=== PATIENT | female | born 1985 | race Caucasian/White ===

== ENCOUNTER 2025-01-12 13:54 | Emergency (ER) | payer OTHER, SELFPAY ==
--- NOTE | ~2025-01-12 | CT_ITS ---
CTA chest PE protocol Ordering provider: Miguel Gil MD History: 39 years Female with . tachycardia . Comparison: None. Technique: CT angiogram chest was performed following timed intravenous injection of contrast. Thin s lice axial images and reformatted coronal images were obtained. Three dimensional reformatted images of the chest were also obtained using a [employer] workstation. . Automated exposure control and iterati ve reconstruction technique were employed. The dose-length product was 385.93 mGy-cm. Findings: PULMONARY ARTERIES: No pulmonary embolus. VISUALIZED THORACIC INLET: Normal. MEDIASTINUM: Aorta/coronary arteries: The thoracic aorta is normal. Heart/other: The heart is not enlarged. Lymph nodes: No mediastinal or hilar adenopathy. Right hilar lymph node is seen measuring 1.4 cm. LUNGS: No pulmonary nodules or masses. No infiltrates or effusions. No pneumothorax. Dependent atelectatic c hanges. VISUALIZED UPPER ABDOMEN: Possible stone in the right kidney lower pole and left kidney mid pole vers us early excretion of contrast. Otherwise, the visualized upper abdomen is normal. MUSCULOSKELETAL: Soft tissues: The superficial soft tissues are normal. Bones: Normal spine. IMPRESSION: 1. No pulmonary embolism. 2. No acute cardiopulmonary pathology. 3. Possible right kidney lower pole and the left kidney midpole stones. Reviewed, dictated and finalized at location A.
--- NOTE | ~2025-01-12 | XR_ITS ---
XR chest 2V Ordering provider: Shweta Mosher MD History: 39 years Female with . Chest pain 2DAY RT UPPER SIDE, HIGH BP, FINGERS TINGLING . Comparison: None. FINDINGS: MEDIASTINUM: The cardiac silhouette is not enlarged. LUNGS: No infiltrates, effusions or pneumothorax. OTHER: No free air under the diaphragm. IMPRESSION: No acute cardiopulmonary pathology. Reviewed, dictated and finalized at location A.
--- NOTE | 2025-01-12 13:57 | ECG_ITS ---
Test Date: 2025-01-12 14:05:42 Measurements Intervals [place] Rate: 138 P: 49 SD: 132 QRS: 34 QRSD: 78 T: 7 QT: 329 QTc: 500 Interpretive Statements SINUS TACHYCARDIA ST DEVIATION AND MODERATE T-WAVE ABNORMALITY, CONSIDER ANTEROLATERAL ISCHEMIA [-0.1+ mV T WAVE IN V3-V6] ABNORMAL ECG No previous ECG available for comparison Electronically Signed On 01-13-2025 12:09:58 CDT by Ghulam Arnold M.D.
[2025-01-12 14:00] VITALS: BP 180/116; PULSE 149; RESP 16; TEMP 36.7; O2SAT 100
[2025-01-12 14:26] VITALS: PULSE 138
[2025-01-12 14:27] VITALS: BP 170/108; PULSE 138; RESP 19; O2SAT 100
--- NOTE | 2025-01-12 14:27 | ED.GENADULT ---
HPI - General Adult General Chief complaint: Chest Pain Stated complaint: Chest pain/both arms hurt/tingling toes/fingers Time Seen by Provider: 01/12/25 14:15 History of Present Illness HPI narrative: 39-year-old female presented to the emergency department for evaluation for increased intermittent anxiety, tachycardia and numbness to her fingers and toes. Patient states she does have intermittent anxiety but has no prior diagnosis of anxiety. Patient states typically when she is in a medical setting she has increased heart rate increased blood pressure. Patient states she was not feeling well yesterday but did go on a walk and states she does felt unwell. Patient states her heart rate at that time was in the 90s. At time of examination patient states she does feel very anxious. Patient does take oral control. Patient has no prior history of PE or DVT. Patient denies any recent falls or injuries. Patient has no prior history of cancer. Any prior cardiac history. Related Data Allergies Allergy/AdvReac Type Severity Reaction Status Date / Time amoxicillin Allergy Intermediate Rash Verified 01/12/25 13:55 Penicillins Allergy Rash Verified 01/12/25 13:55 Review of Systems Review of Systems: All systems reviewed & are unremarkable except as noted in HPI and below Exam Narrative: APPEARANCE: Well appearing, no pain, no distress, well-nourished. HEAD: normocephalic, atraumatic. EYES: PERRLA/EOMI, conjunctivae clear. NOSE: Normal no drainage EARS:TMS clear with good light reflex. THROAT: Pharynx clear, no exudate. NECK: Supple. No adenopathy, no masses. RESPIRATORY: Airway patent, respirations nonlabored. Clear to auscultation bilaterally, no rales, rhonchi, wheezing. CARDIOVASCULAR: Sinus tachycardia ABDOMINAL: Soft, nontender, nondistended, normal bowel sounds MUSCULOSKELETAL: Moves all extremities. Strength/ROM intact, No edema, No calf tenderness. NEURO: Alert. Cranial nerves II through XII intact. Good gait. Good coordination SKIN: Warm, dry. Normal Color PSYCHIATRIC: Anxious affect Course Vital Signs Vital signs: Vital Signs Temperature 98.1 F 01/12/25 14:00 Pulse Rate 149 H 01/12/25 14:00 Respiratory Rate 16 01/12/25 14:00 Blood Pressure 180/116 H 01/12/25 14:00 Pulse Oximetry 100 01/12/25 14:00 Oxygen Delivery Room Air 01/12/25 14:00 Temperature 98.1 F 01/12/25 14:00 Pulse Rate 116 H 01/12/25 17:41 Respiratory Rate 16 01/12/25 17:41 Blood Pressure 147/80 H 01/12/25 17:41 Pulse Oximetry 97 01/12/25 17:41 Oxygen Delivery Room Air 01/12/25 14:16 Medical Decision Making MDM Narrative Medical decision making narrative: 31-year-old female presents emergency department for evaluation for rapid heart rate, peroneal numbness and anxiety. Patient is being treated with a L IV fluids along with 1 mg of IV Ativan for anxiety. D-dimer was ordered along with a cardiac workup. Patient states she was reassured by the plan for workup. All questions concerns were addressed this time. Patient is currently afebrile with no leukocytosis hemoglobin of 15.4. Patient's INR is 0.9 patient does not have an elevated D-dimer. Patient has no significant abnormalities on her CMP patient had negative serial troponins. Magnesium was normal. Thyroid was within normal limits patient has produced test was negative. Patient was negative for influenza RSV and for COVID. CTA showed no acute abnormality. Patient's heart rate did improve to 105. When I entered the room to the patient's heart rate then increased to 130s. Patient states that she does have history of white coat syndrome and I think this is affecting her current tachycardia. Differential Diagnosis Differential Diagnosis: Anxiety, ACS, PE, DVT, dehydration, COVID, RSV, influenza Vital Signs Vital Signs: Vital Signs Temperature 98.1 F 01/12/25 14:00 Pulse Rate 149 H 01/12/25 14:00 Respiratory Rate 16 01/12/25 14:00 Blood Pressure 180/116 H 01/12/25 14:00 Pulse Oximetry 100 01/12/25 14:00 Oxygen Delivery Room Air 01/12/25 14:00 Temperature 98.1 F 01/12/25 14:00 Pulse Rate 116 H 01/12/25 17:41 Respiratory Rate 16 01/12/25 17:41 Blood Pressure 147/80 H 01/12/25 17:41 Pulse Oximetry 97 01/12/25 17:41 Oxygen Delivery Room Air 01/12/25 14:16 Lab Data Lab results reviewed: Yes I reviewed the patient's lab results. 01/12/25 14:25 01/12/25 14:25 Labs: Lab Results 01/12/25 01/12/25 01/12/25 Range/Units 14:25 15:12 15:18 WBC 8.2 (4.5-10.0) K/mm3 RBC 4.97 (4.2-5.4) M/mm3 Hgb 15.4 H (12.0-15.0) g/dL Hct 45.4 (37.0-47.0) % MCV 91.3 (80-100) fl MCH 31.0 (26-34) pg MCHC 33.9 (32-36) g/dl RDW 12.2 (11.5-14.5) % Plt Count 326 (150-375) k/mm3 MPV 9.9 (7.4-10.4) fl Immature Gran % (Auto) 0.2 (0-0.5) % Neut % (Auto) 57.8 (45.5-73.1) % Lymph % (Auto) 35.0 (18.3-44.2) % [place] % (Auto) 5.5 (2.6-8.5) % Eos % (Auto) 1.0 (0-4.4) % Baso % (Auto) 0.5 (0.2-1.2) % Lymph # (Auto) 2.87 (0.9-3.2) K/mm3 [place] # (Auto) 0.5 (0.1-0.6) K/mm3 Eos # (Auto) 0.1 (0-0.3) K/mm3 Baso # (Auto) 0.0 (0.0-0.1) K/mm3 Abs Immat Gran (auto) 0.02 (0.00-0.031) K/mm3 Absolute Neuts (auto) 4.7 (1.3-6.7) K/mm3 Absolute Nucleated RBC 0.000 (0.0-0.012) K/mm3 Nucleated RBC % 0.0 (0.0-0.2) % PT 12.8 (11.1-14.7) Seconds INR 0.9 APTT 24.7 (22.3-36.8) Seconds D-Dimer 0.37 (<0.48) ug/mL Sodium 141 (137-145) mmol/L Potassium 3.2 L (3.4-5.0) mmol/L Chloride 108 H (98-107) mmol/L Carbon Dioxide 17 L (22-30) mmol/L Anion Gap 16 H (4-12) mmol/L BUN 9 (7-17) mg/dL Creatinine 0.88 (0.7-1.0) mg/dL Estim Creat Clear Calc 87 ml/min Estimated GFR > 60 (59 - ) Glucose 93 (65-110) mg/dL Calcium 9.7 (8.4-10.2) mg/dL Magnesium 2.1 (1.6-2.3) mg/dL Total Bilirubin 0.6 (0.2-1.3) mg/dL AST 18 (14-36) U/L ALT 16 (6-35) U/L Alkaline Phosphatase 49 (38-126) U/L Troponin I < 0.012 (0.000-0.034) ng/mL Total Protein 9.0 H (6.3-8.2) g/dL Albumin 4.9 (3.5-5.1) g/dL Lipase 219 (23-300) U/L TSH (Reflex) 1.950 (0.465-4.68) uIU/mL POC Urine HCG, Qual Negative (Negative) Influenza A (RT-PCR) Negative (Negative) Influenza B (RT-PCR) Negative (Negative) RSV (RT-PCR) Negative (Negative) SARS-CoV-2 RNA (RT-PCR) Negative (Negative) 01/12/25 Range/Units 17:02 WBC (4.5-10.0) K/mm3 RBC (4.2-5.4) M/mm3 Hgb (12.0-15.0) g/dL Hct (37.0-47.0) % MCV (80-100) fl MCH (26-34) pg MCHC (32-36) g/dl RDW (11.5-14.5) % Plt Count (150-375) k/mm3 MPV (7.4-10.4) fl Immature Gran % (Auto) (0-0.5) % Neut % (Auto) (45.5-73.1) % Lymph % (Auto) (18.3-44.2) % [place] % (Auto) (2.6-8.5) % Eos % (Auto) (0-4.4) % Baso % (Auto) (0.2-1.2) % Lymph # (Auto) (0.9-3.2) K/mm3 [place] # (Auto) (0.1-0.6) K/mm3 Eos # (Auto) (0-0.3) K/mm3 Baso # (Auto) (0.0-0.1) K/mm3 Abs Immat Gran (auto) (0.00-0.031) K/mm3 Absolute Neuts (auto) (1.3-6.7) K/mm3 Absolute Nucleated RBC (0.0-0.012) K/mm3 Nucleated RBC % (0.0-0.2) % PT (11.1-14.7) Seconds INR APTT (22.3-36.8) Seconds D-Dimer (<0.48) ug/mL Sodium (137-145) mmol/L Potassium (3.4-5.0) mmol/L Chloride (98-107) mmol/L Carbon Dioxide (22-30) mmol/L Anion Gap (4-12) mmol/L BUN (7-17) mg/dL Creatinine (0.7-1.0) mg/dL Estim Creat Clear Calc ml/min Estimated GFR (59 - ) Glucose (65-110) mg/dL Calcium (8.4-10.2) mg/dL Magnesium (1.6-2.3) mg/dL Total Bilirubin (0.2-1.3) mg/dL AST (14-36) U/L ALT (6-35) U/L Alkaline Phosphatase (38-126) U/L Troponin I < 0.012 (0.000-0.034) ng/mL Total Protein (6.3-8.2) g/dL Albumin (3.5-5.1) g/dL Lipase (23-300) U/L TSH (Reflex) (0.465-4.68) uIU/mL POC Urine HCG, Qual (Negative) Influenza A (RT-PCR) (Negative) Influenza B (RT-PCR) (Negative) RSV (RT-PCR) (Negative) SARS-CoV-2 RNA (RT-PCR) (Negative) Imaging Data Radiologist's impression: Impressions Chest X-Ray 01/12/25 15:08 IMPRESSION: No acute cardiopulmonary pathology. Chest CTA 01/12/25 15:42 IMPRESSION: 1. No pulmonary embolism. 2. No acute cardiopulmonary pathology. 3. Possible right kidney lower pole and the left kidney midpole stones. Discharge Plan Discharge Clinical Impression: Tachycardia Patient Disposition: Home, Self-Care Condition: Stable Instructions: Antibiotic Form, Chest Pain (ED), Tachycardia (ED) Additional Instructions: Have close follow-up with your primary care physician for additional outpatient cardiac testing. Patient Language: [place] Island[place] Follow-up/Referrals: PHYSICIAN,CODING COMPLIANCE SPECIALIST [Non-Staff] -
[2025-01-12] MEDS: LACTATED RINGERS 1,000 ML 999 ML IV CONT (14:33)
[2025-01-12] MEDS: LORazepam INJ (*CRX) 2 MG/ML VIAL 1 MG IV PUSH ×2 (14:33→17:04)
[2025-01-12 14:39] LABS: Basophils Percent Auto 0.5 % (0.2-1.2); Eosinophils Absolute Auto 0.1 K/mm3 (0-0.3); Hematocrit 45.4 % (37.0-47.0); Hemoglobin 15.4 g/dL (12.0-15.0); Immature Granulocyte Absolute 0.02 K/mm3 (0.00-0.031); Immature Granulocyte Percent A 0.2 % (0-0.5); Lymphocytes Absolute Auto 2.87 K/mm3 (0.9-3.2); Mean Corpuscular HGB Conc 33.9 g/dl (32-36); Mean Corpuscular Volume 91.3 fl (80-100); Mean Platelet Volume 9.9 fl (7.4-10.4); Monocytes Absolute Auto 0.5 K/mm3 (0.1-0.6); Monocytes Percent Auto 5.5 % (2.6-8.5); Neutrophils Absolute Auto 4.7 K/mm3 (1.3-6.7); Neutrophils Percent Auto 57.8 % (45.5-73.1); Platelet Count Result 326 k/mm3 (150-375); Red Blood Count 4.97 M/mm3 (4.2-5.4); Red Cell Distribution Width 12.2 % (11.5-14.5); White Blood Count 8.2 K/mm3 (4.5-10.0)
[2025-01-12 14:51] LABS: Alanine Aminotransferase 16 U/L (6-35); Albumin Level 4.9 g/dL (3.5-5.1); Alkaline Phosphatase 49 U/L (38-126); Anion Gap 16 mmol/L (4-12); Aspartate Amino Transferase 18 U/L (14-36); Bilirubin,Total 0.6 mg/dL (0.2-1.3); Blood Urea Nitrogen 9 mg/dL (7-17); Calcium 9.7 mg/dL (8.4-10.2); Carbon Dioxide 17 mmol/L (22-30); Chloride 108 mmol/L (98-107); Estimated CRCL calculation 87 ml/min; Estimated Glomerular Filt Rate > 60; Glucose 93 mg/dL (65-110); Lipase 219 U/L (23-300); Magnesium 2.1 mg/dL (1.6-2.3); Potassium 3.2 mmol/L (3.4-5.0); Sodium 141 mmol/L (137-145)
[2025-01-12 14:53] LABS: INR 0.9; Prothrombin Time 12.8 Seconds (11.1-14.7)
[2025-01-12 14:54] LABS: Partial Thromboplastin Time 24.7 Seconds (22.3-36.8)
[2025-01-12 15:02] LABS: Troponin I < 0.012 ng/mL (0.000-0.034)
[2025-01-12 15:20] LABS: BEDSIDEPREGUCG Negative (Negative)
[2025-01-12 15:28] LABS: D Dimer 0.37 ug/mL (<0.48)
--- NOTE | 2025-01-12 15:36 | PC.NURSE ---
pt to CT and IV fluids paused
--- OUTSIDE RECORDS SUMMARY | 2025-01-12 15:39 | XMS_ITS | Clinical Summary ---
Author Organization [facility] Address [address] [place] [address] Care Team Providers Care Cooker Mechanic Name Role Phone Unavailable Primary Care Provider Unavailabl e Source Comments [facility],non-owned Affiliates and Associated Physician Practices is amultiple site organization consisting of ambulatory clinics and hospital sitesin [place], [place], [place] and [place]. This disclosure is being madepursuant to the Care Everywhere program and may not contain all information available regarding this patient. Last updated 18.[facility] Allergies Active Allergy Reactions Criticality Noted Date Comments Penicillins 12/11/2016 Medications Be aware that medications may not be up to date on this document. Always verify current medications with the patient. No known medications Social History Tobacco Use Types Packs/Day Years Used Date Smoking Tobacco: Never Assessed Sex and Gender Information Value Date Recorded Sex Assigned at Not on file Gender Identity Not on file Sexual Orientation Not on file Last Filed Vital Signs Vital Sign Reading Time Taken Comments Blood Pressure 132/90 12/11/2016 9:14 AM TECHNICAL SALES ENGINEER Pulse 125 12/11/2016 9:30 AM TECHNICAL SALES ENGINEER Temperature 37.5 C (99.5 F) 12/11/2016 9:14 AM TECHNICAL SALES ENGINEER Respiratory Rate - - Oxygen Saturation - - Inhaled Oxygen Concentration - - Weight 83.9 kg (185 lb) 12/11/2016 9:14 AM TECHNICAL SALES ENGINEER Height 172.7 cm (5' 8 ) 12/11/2016 9:14 AM TECHNICAL SALES ENGINEER Body Mass Index 28.13 12/11/2016 9:14 AM TECHNICAL SALES ENGINEER Plan of Treatment Health Maintenance Due Date Last Done Comments PAP SMEAR 1986 HIV SCREENING 2001 HEPATITIS C SCREENING 11/23/2004 DTAP/TDAP/TD VACCINES (1 - Tdap) 2005 HEPATITIS B VACCINE (1 of 3 - 19+ 3-dose series) 2005 COVID-19 VACCINE (1 - 2023-2 5 season) 2024 INFLUENZA VACCINE (#1) 2024 DEPRESSION SCREENING 10/28/2024 ZOSTER VACCINE (1 of 2) 2036 HIB VACCINE Aged Out No longer eligi ble based on patient's age to complete this topic HPV VACCINE Aged Out No longer eligi ble based on patient's age to complete this topic MENINGOCOCCAL (Group B) VACC INE SHARED DECISION-MAKING Aged Out No longer eligibl e based on patient's age to complete this topic MENINGOCOCCAL GROUPS A/C/Y/W VACCINE Aged Out No longer eligible b ased on patient's age to complete this topic PNEUMOCOCCAL VACCINE Aged Out No long er eligible based on patient's age to complete this topic
--- OUTSIDE RECORDS SUMMARY | 2025-01-12 15:39 | XMS_ITS | Referral Summary ---
Author Organization [facility] Address [address] [place] [address] Care Team Providers Care Wax Bleacher Name Role Phone Kandice Romeo NP Primary Care Provider [phone] Encounters Date Type Department Care Team Description 01/04/2025 Orders Only [facility] Primary Care at [address] [phone] Henny Bruce NP Preventative health care (Primary Dx); Screening for hepatitis B virus declined; Need for hepatitis B screening test; Screening for thyroid disorder; Screening for lipid disorders; Encounter for screening examination for impaired glucose regulation and diabetes mellitus 01/04/2025 Telephone [facility] Primary Care at [address] [phone] Henny Bruce NP 01/04/2025 1:00 PM CDT Office Visit [facility] Primary Care at [address] [phone] Henny Bruce NP Laceration of left hand without foreign body, subsequent encounter (Primary Dx); Elevated blood pressure reading in office without diagnosis of hypertension; Class 1 obesity with body mass index (BMI) of 30.0 to 30.9 in adult, unspecified obesity type, unspecified whether serious comorbidity present 01/02/2025 7:58 PM MUTUEL MACHINE OPERATOR - 01/02/2025 10:35 PM MUTUEL MACHINE OPERATOR Emergency [facility] Emergency Department [address] [place] [address] Discharge Disposition: Left without being seen 01/02/2025 7:15 PM MUTUEL MACHINE OPERATOR Office Visit [facility] at [address] [phone] Christine Sandra NP Laceration of left hand, foreign body presence unspecified, initial encounter (Primary Dx); Elevated blood pressure reading in office without diagnosis of hypertension; Tachycardia from Last 3 Months Allergies Active Allergy Reactions Criticality Noted Date Comments Penicillins Medications Lutera, 28, 0.1-20 mg-mcg per tablet Take 1 tablet by mouth daily 03/16/20 23 Active valACYclovir (VALTREX) 1 gram tablet Take 1 tablet (1,000 mg total) by mouth as needed 06/18/20 24 Active methylPREDNISo lone (Medrol, Salvador,) 4 mg DosepackIndica tions:Acute JOSE (middle ear effusion), right follow package directions 21 tablet 08/14/20 24 025 Discontinued Active Problems Problem Noted Date Diagnosed Date Class 1 obesity with body ma ss index (BMI) of 30.0 to 30.9 in adult 01/04/2025 Assessment & Plan (01/04/2025 1:20 PM CDT): Wt Readings from Last 3 Encounters: 01/04/25 90.7 kg (200 lb) 01/02/25 91.2 kg (201 lb) 08/14/24 79.8 kg (176 lb) Body mass index is 30.42 kg/m . -Stable, not at goal of <30 bmi -Discussed recommendations for exercise at least 30 minutes moderate to vigorous exercise as tolerated most days of the week. (minimum 150 minutes weekly) -Discussed importance of well-balanced diet Elevated blood pressure read ing in office without diagnosis of hypertension 01/04/2025 Assessment & Plan (01/04/2025 2:37 PM CDT): BP Readings from Last 3 Encounters: 01/04/25 (!) 140/102 01/02/25 (!) 160/102 08/14/24 122/80 -New finding, not at goal of <140/90 -currently does not take medication -patient denies checking blood pressure regularly at home -encourage patient to continue low-sodium diet -Blood pressure log provided, instructed patient to take blood pressure once daily -Follow up in 4 weeks for re-evaluation -continue current treatment plan Encounter for counseling regarding contraception 01/25/2023 Assessment & Plan (01/25/2023 8:01 AM CDT): - control options reviewed with patient, including oral contraceptive pills, contraceptive patches, Nexplanon, and IUDs. -patient is interested in starting oral contraceptive pills. Patient denies history of smoking, hypertension, migraines, or TIA/stoke -Referral sent to [employer] POLICE OFFICER. If pt is unable to get an appointment for an few months, advised patient that we can prescribe oral contraceptive pills. BMI 25.0-25.9,adult 01/25/2023 Assessment & Plan (01/25/2023 8:02 AM CDT): HPI: Condition is stable goal BMI <30 A&P: Healthy, high-protein, lower carbohydrate, lower fat lifestyle and exercise for 150min/week recommended Recommend tracking everything you put in your mouth on an xi like [employer] Hand Measurements: A fist or cupped hand = 1 cup 1 cup = 1 -2 servings of fruit juice 1 oz. of cold cereal 2 oz. of cooked cereal, rice or pasta 8 oz. of milk or yogurt A thumb = 1 oz. of cheese Consuming low-fat cheese helps you meet the required servings from the milk, yogurt and cheese group. 1 oz. of low-fat cheese counts as 8 oz. of milk or yogurt. Handful = 1-2 oz. of snack food Thumb tip = 1 teaspoon Keep high-fat foods, such as peanut butter and mayonnaise, at a minimum. One teaspoon is equal to the end of your thumb, from the knuckle up. Three teaspoons equals 1 tablespoon. Palm = 3 oz. of meat Choose lean poultry, fish, shellfish and beef. One palm size portion equals 3 oz. for an adult and 1 -2 oz. for a child under 5. 1 tennis ball or a fist= 1/2 cup of fruit and vegetables Healthy diets include a variety of colorful fruits and vegetables every day. The secret to serving size is in your hand. Snacking can add up. Because hand sizes vary, compare your fist size to an actual measuring cup. Fever blister 09/27/2022 Assessment & Plan (01/25/2023 8:02 AM CDT): -chronic, stable. Denies current outbreak. -when experiencing an outbreak, patient uses valtrex 1 gram Assessment & Plan (09/27/2022 12:22 PM MUTUEL MACHINE OPERATOR): Valacyclovir sent w/refills for any future outbreaks. Aware to take 2 tabs at onset & 2 tabs 12 hrs later. Reviewed highly contagious. Does have prodromal sensation. Can p/u abbreva also. Discussed lysine otc to help additionally. Reviewed skin care; signs of secondary infxn. Reviewed red flags. Immunizations Immunization Administration Dates Next Due Influenza, Quadrivalent, Lynnette l Culture-based MDCK, Preservative Free, Antibiotic Free, Intramuscular 08/30/2022 Influenza, Trivalent, IM (MDV) 08/12/2021 Influenza, Unspecified 01/04/2025(Deferred: Beba ent Refused) Pfizer SARS-CoV-2 Monovalent Vaccination (12+ Yrs) PURPLE 01/15/2021,12/25/2020 Tdap 01/02/2025 Social History Tobacco Use Types Packs/Day Years Used Date Smoking Tobacco: Never Smokeless Tobacco: Never Tobacco Cessation:Counseling Given: Not Answered Alcohol Use Standard Drinks/Week Comments Yes 0 (1 standard drink = 0.6 oz pur e alcohol) socially AUDIT-C Answer Date Recorded Q1: How often do you have a drink containing alc ohol? Monthly or less 01/04/2025 Q2: How many drinks containi ng alcohol do you have on a typical day when you are drinking? 1 or 2 01/04/2025 Q3: How often do you have si x or more drinks on one occasion? Never 01/04/2025 PHQ-2 Answer Date Recorded PHQ-2 Total Score (If total score is 3 or more points, staff should administer the PHQ-9) 0 01/04/2025 Personal Safety Answer Date Recorded Have you ever been in or are you currently in a harmful physical or emotional relationship or is someone making you feel afraid or unsafe? Denies 01/02/2025 Comments No Sex and Gender Information Value Date Recorded Sex Assigned at Not on file Legal Sex Female 7:23 PM MUTUEL MACHINE OPERATOR Gender Identity Not on file Sexual Orientation Not on file Last Filed Vital Signs Vital Sign Reading Time Taken Comments Blood Pressure 140/102 01/04/2025 1:03 PM CDT Pulse 73 01/04/2025 1:03 PM CDT Temperature 36.8 C (98.3 F) 01/04/2025 1:03 PM CDT Respiratory Rate 16 01/04/2025 1:03 PM CDT Oxygen Saturation 99% 01/04/2025 1:03 PM CDT Inhaled Oxygen Concentration - - Weight 90.7 kg (200 lb) 01/04/2025 1:03 PM CDT Height 172.7 cm (5' 7.99 ) 01/04/2025 1:03 PM CD T Body Mass Index 30.42 01/04/2025 1:03 PM CDT Plan of Treatment Not on file Insurance [employer] [facility] PLUS [facility] H[facility]PPO Address: [address] [address] [facility] CHOICE PLUS [facility] H[facility]/PPO Address: [address] [address] [place] [address] [facility] CHOICE PLUS [facility] H[facility]/PPO Address: [address] [address] [place] [id number] Care Teams Wax Bleacher Relationship Specialty Start Date End Date Kandice Romeo NP [address] [facility] [place] [address] PCP - General Family Medicine 01/25/23
--- OUTSIDE RECORDS SUMMARY | 2025-01-12 15:39 | XMS_ITS | Clinical Summary ---
Author Organization [facility] Address [address] [place] [address] Care Team Providers Care Timber Trimmer Name Role Phone Kandice Romeo NP Primary Care Provider Allergies Active Allergy Reactions Criticality Noted Date [...] hypertension, migraines, or TIA/stoke -Referral sent to MEDICAL REIMBURSEMENT MANAGER. If pt is unable to get an appointment for an few months, advised patient that we can prescribe oral contraceptive pills. BMI 25.0-25.9,adult 01/25/2023 Assessment & Plan (01/25/2023 8:02 AM CDT): HPI: Condition is stable goal BMI <30 A&P: Healthy, high-protein, lower carbohydrate, lower fat lifestyle and exercise for 150min/week recommended Recommend tracking everything you put in your mouth on an xi like [employer] Hand Measurements: A fist or cupped hand [...] gram Assessment & Plan (09/27/2022 12:22 PM ROBOT TECHNICIAN): Valacyclovir sent w/refills for any future outbreaks. Aware to take 2 tabs at onset & 2 tabs 12 hrs later. Reviewed highly contagious. Does have prodromal sensation. Can p/u abbreva also. Discussed lysine otc to help additionally. Reviewed skin care; signs of secondary infxn. Reviewed red flags. Encounters Date Type Department Care Team Description 01/04/2025 1:00 PM CDT Office Visit [facility] Primary Care at [address] [place] [phone] Henny Bruce, ROBIN Laceration of left hand without foreign body, subsequent encounter (Primary Dx); Elevated blood pressure reading in office without diagnosis of hypertension; Class 1 obesity with body mass index (BMI) of 30.0 to 30.9 in adult, unspecified obesity type, unspecified whether serious comorbidity present 01/04/2025 Orders Only [facility] Primary Care at [address] [place] [phone] Henny Bruce, ROBIN Preventative health care (Primary Dx); Screening for hepatitis B virus declined; Need for hepatitis B screening test; Screening for thyroid disorder; Screening for lipid disorders; Encounter for screening examination for impaired glucose regulation and diabetes mellitus 01/04/2025 Telephone [facility] Primary Care at [address] [place] [phone] Henny Bruce NP 01/02/2025 7:58 PM ROBOT TECHNICIAN - 01/02/2025 10:35 PM ROBOT TECHNICIAN Emergency [facility] Emergency Department [address] [place] [address] Discharge Disposition: Left without being seen 01/02/2025 7:15 PM ROBOT TECHNICIAN Office Visit [facility] Care at [address] [phone] Christine Sandra NP Laceration of left hand, foreign body presence unspecified, initial encounter (Primary Dx); Elevated blood pressure reading in office without diagnosis of hypertension; Tachycardia from Last 3 Months Immunizations Immunization Administration Dates Next Due Influenza, [...] on file Legal Sex Female 7:23 PM ROBOT TECHNICIAN Gender Identity Not on file Sexual Orientation Not on file Obstetrics History Para Term AB IAB SAB Ectopic Multiple Livin g Live Births 0 0 0 0 0 0 0 0 0 0 0 Last Filed Vital Signs Vital Sign Reading [...] 01/04/2025 1:03 PM CDT Plan of Treatment Health Maintenance Due Date Last Done Comments Cervical Cancer Screening 1986 Hepatitis C Screening 1986 Hepatitis B Screening 2004 Regular Well Visit/Exam 18-64 01/26/2024 01/25/2023 Influenza Vaccine (#1) 2025 , 08/12/2021 Postponed from 06/28/2024 (Patient declined, but will receive in the future) Covid-19 Vaccine ( season) 2026 08/12/2021, 01/15/2021, 12/25/2020 Postponed from 06/28/2024 (Patient declined, but will receive in the future) Depression Screening 01/04/2026 01/04/2025, 01/25/2023 DTaP/Tdap/Td Vaccine (2 - Td or Tdap) 01/02/2035 01/02/2025 HPV Vaccines Aged Out No longer eligi ble based on patient's age to complete this topic Pneumococcal vaccine <65 Aged Out No longer eligible based on patient's age to complete this topic Varicella Vaccines Discontinued Insurance [employer] Care Teams Timber Trimmer Relationship Specialty Start Date End Date Kandice Romeo NP [address] [place] [address] PCP - General Family Medicine 01/25/23
[2025-01-12 15:54] LABS: Influenza A QL RT-PCR Negative (Negative); Influenza B QL RT-PCR Negative (Negative); RSV RNA, RT-PCR Negative (Negative); SARS-CoV-2 RNA PCR Negative (Negative)
--- NOTE | 2025-01-12 16:03 | ECG_ITS ---
Test Date: 2025-01-12 17:10:23 Measurements Intervals [place] Rate: 118 P: 48 OK: 153 QRS: 30 QRSD: 78 T: 17 QT: 310 QTc: 435 Interpretive Statements SINUS TACHYCARDIA POSSIBLE LEFT ATRIAL ENLARGEMENT [-0.1mV P-WAVE IN V1/V2] NONSPECIFIC T-WAVE ABNORMALITY ABNORMAL ECG Electronically Signed On 01-13-2025 12:14:59 CDT by Ghulam Arnold M.D.
--- NOTE | 2025-01-12 16:07 | PC.NURSE ---
pt back in room and IV fluids resumed
--- OUTSIDE RECORDS SUMMARY | 2025-01-12 16:18 | XMS_ITS | Clinical Summary ---
Author Organization [facility] Address [address] [place] [address] Care Team Providers Care Pocket Cutter Name Role Phone Unavailable Primary Care Provider Unavailabl e Source Comments [facility] [employer],non-owned Affiliates and Associated Physician Practices is amultiple site organization consisting of ambulatory clinics and hospital sitesin [place], [place], [place] and [place]. This disclosure is being madepursuant to the Care Everywhere program and may not contain all information available regarding this patient. Last updated 18.[facility] [employer] Allergies Active Allergy Reactions Criticality Noted Date [...] Comments Blood Pressure 132/90 12/11/2016 9:14 AM DYNAMITE SHOOTER Pulse 125 12/11/2016 9:30 AM DYNAMITE SHOOTER Temperature 37.5 C (99.5 F) 12/11/2016 9:14 AM DYNAMITE SHOOTER Respiratory Rate - - Oxygen Saturation - - Inhaled Oxygen Concentration - - Weight 83.9 kg (185 lb) 12/11/2016 9:14 AM DYNAMITE SHOOTER Height 172.7 cm (5' 8 ) 12/11/2016 9:14 AM DYNAMITE SHOOTER Body Mass Index 28.13 12/11/2016 9:14 AM DYNAMITE SHOOTER Plan of Treatment Health Maintenance Due Date [...]
--- OUTSIDE RECORDS SUMMARY | 2025-01-12 16:18 | XMS_ITS | Clinical Summary ---
Author Organization [facility] Address [address] [place] [address] Care Team Providers Care Pantograph Operator Name Role Phone Kandice Romeo NP Primary [...] hypertension, migraines, or TIA/stoke -Referral sent to MANAGER MARITIME. If pt is unable to get an appointment for an few months, advised patient that we can prescribe oral contraceptive pills. BMI 25.0-25.9,adult 01/25/2023 Assessment & Plan (01/25/2023 8:02 AM CDT): HPI: Condition is stable goal BMI <30 A&P: Healthy, high-protein, lower carbohydrate, lower fat lifestyle and exercise for 150min/week recommended Recommend tracking everything you put in your mouth on an xi like [employer] Hand Measurements: A fist or cupped hand [...] gram Assessment & Plan (09/27/2022 12:22 PM OFFSET PRINTING PRESSMEN): Valacyclovir sent w/refills for any future outbreaks. Aware to take 2 tabs at onset & 2 tabs 12 hrs later. Reviewed highly contagious. Does have prodromal sensation. Can p/u abbreva also. Discussed lysine otc to help additionally. Reviewed skin care; signs of secondary infxn. Reviewed red flags. Encounters Date Type Department Care Team Description 01/04/2025 1:00 PM CDT Office Visit [facility] Primary Care at [address] [place] [phone] Henny Bruce, ROBIN Laceration of left hand without foreign body, subsequent encounter (Primary Dx); Elevated blood pressure reading in office without diagnosis of hypertension; Class 1 obesity with body mass index (BMI) of 30.0 to 30.9 in adult, unspecified obesity type, unspecified whether serious comorbidity present 01/04/2025 Orders Only [facility] Primary Care at [address] [place] [phone] Henny Bruce, ROBIN Preventative health care (Primary Dx); Screening for hepatitis B virus declined; Need for hepatitis B screening test; Screening for thyroid disorder; Screening for lipid disorders; Encounter for screening examination for impaired glucose regulation and diabetes mellitus 01/04/2025 Telephone [facility] Primary Care at [address] [place] [phone] Henny Bruce NP 01/02/2025 7:58 PM OFFSET PRINTING PRESSMEN - 01/02/2025 10:35 PM OFFSET PRINTING PRESSMEN Emergency [facility] Emergency Department [address] [place] [address] Discharge Disposition: Left without being seen 01/02/2025 7:15 PM OFFSET PRINTING PRESSMEN Office Visit [facility] Convenient Care at [address] [phone] Christine Sandra NP Laceration of [...] on file Legal Sex Female 7:23 PM OFFSET PRINTING PRESSMEN Gender Identity Not on file Sexual Orientation [...] complete this topic Varicella Vaccines Discontinued Insurance [facility] CHOICE PLUS Care Teams Pantograph Operator Relationship Specialty Start Date End Date Kandice Romeo NP [address] [place] [address] PCP - General Family Medicine 01/25/23
--- OUTSIDE RECORDS SUMMARY | 2025-01-12 16:18 | XMS_ITS | Referral Summary ---
Author Organization [facility] Address [address] [place] [address] Care Team Providers Care Cia Agent Name Role Phone Kandice Romeo NP Primary Care Provider [phone] Encounters Date Type Department Care Team Description 01/04/2025 Orders Only [facility] Primary Care at [address] [phone] Henny Bruce NP Preventative health care (Primary Dx); Screening for hepatitis B virus declined; Need for hepatitis B screening test; Screening for thyroid disorder; Screening for lipid disorders; Encounter for screening examination for impaired glucose regulation and diabetes mellitus 01/04/2025 Telephone [facility] Primary Care at [address] [phone] Henny Bruce NP 01/04/2025 1:00 PM CDT Office Visit [facility] Primary Care at [address] [phone] Henny Bruce NP Laceration of left hand without foreign body, subsequent encounter (Primary Dx); Elevated blood pressure reading in office without diagnosis of hypertension; Class 1 obesity with body mass index (BMI) of 30.0 to 30.9 in adult, unspecified obesity type, unspecified whether serious comorbidity present 01/02/2025 7:58 PM STEAM HEATING INSTALLER - 01/02/2025 10:35 PM STEAM HEATING INSTALLER Emergency [facility] Emergency Department [address] [place] [address] Discharge Disposition: Left without being seen 01/02/2025 7:15 PM STEAM HEATING INSTALLER Office Visit [facility] at [address] [phone] Christine Sandra NP Laceration of [...] hypertension, migraines, or TIA/stoke -Referral sent to [facility] ADVANCED OPERATOR. If pt is unable to get an appointment for an few months, advised patient that we can prescribe oral contraceptive pills. BMI 25.0-25.9,adult 01/25/2023 Assessment & Plan (01/25/2023 8:02 AM CDT): HPI: Condition is stable goal BMI <30 A&P: Healthy, high-protein, lower carbohydrate, lower fat lifestyle and exercise for 150min/week recommended Recommend tracking everything you put in your mouth on an xi like [employer] Hand Measurements: A fist or cupped hand [...] gram Assessment & Plan (09/27/2022 12:22 PM STEAM HEATING INSTALLER): Valacyclovir sent w/refills for any future outbreaks. [...] on file Legal Sex Female 7:23 PM STEAM HEATING INSTALLER Gender Identity Not on file Sexual Orientation [...] Not on file Insurance [employer] [facility] HMO/PPO Address: [address] [phone] [facility] CHOICE [employer]US [facility] HMO/PPO Address: [address] [address] [place] [address] [facility] CHOICE [employer]US [facility] HMO/PPO Address: [address] [address] [place] [phone] Care Teams Cia Agent Relationship Specialty Start Date End Date Kandice Romeo NP [address] [facility] [address] PCP - General Family Medicine 01/25/23
[2025-01-12 17:03] VITALS: BP 151/106; PULSE 121; RESP 16; O2SAT 100
[2025-01-12 17:41] VITALS: BP 147/80; PULSE 116; RESP 16; O2SAT 97
[2025-01-12 17:48] LABS: Troponin I < 0.012 ng/mL (0.000-0.034)
== END 2025-01-12 17:43 | disposition home or self-care (01) ==
PROVIDERS: Student in an Organized Health Care Education/Training Program; Emergency Provider Emergency Medicine
DX: R00.0 Tachycardia, unspecified (principal); Z20.822 Contact with and (suspected) exposure to COVID-19; Z79.3 Long term (current) use of hormonal contraceptives; R93.422 Abnormal radiologic findings on diagnostic imaging of left kidney; R93.421 Abnormal radiologic findings on diagnostic imaging of right kidney
CPT/HCPCS: 36415; 71046; 71275; 80053; 81025; 83690; 83735; 84443; 84484; 85025; 85380; 85610; 85730; 87637; 93005; 96361; 96374; 96376; 99284; J2060; J7120; Q9967